=== PATIENT | female | born 1955 | race Caucasian/White ===

== ENCOUNTER 2016-12-06 08:12 | Day surgery (SDC) | payer OTHER ==
--- NOTE | 2016-11-30 13:46 | HISTORY AND PHYSICAL E ---
History and Physical NAME: GERMÁN DIAZ : 1955 AGE: 61Y ADMITTED: 12/06/2016 ROOM: REFERRING: [facility]. CHIEF COMPLAINT: Abdominal pain, bloating, nausea, constipation. PAST SURGICAL HISTORY: The patient does have history of: 1. Tonsillectomy. 2. Cholecystectomy. 3. C section. SOCIAL HISTORY: . FAMILY HISTORY: Father had heart disease. Mom had mesothelioma. REVIEW OF SYSTEMS: CARDIAC: Hypertension. High cholesterol. GASTROINTESTINAL: Abdominal pain, nausea, vomiting, constipation, IBS. ONCOLOGIC/HEMATOLOGIC: Negative. NEUROPSYCHIATRIC: Anxiety. PHYSICAL EXAMINATION: GENERAL: A 61-year-old female. VITAL SIGNS: Blood pressure 120/80, pulse 80, respirations 18, temp is 98. HEAD, EYES, EARS, NOSE, THROAT: Normal. NECK: Supple. LUNGS: Clear. ABDOMEN: Soft. NEUROLOGIC: Exam negative. CONCLUSION: 1. Abdominal pain. 2. Changed bowel habits. PLAN: 1. Upper scope. 2. Later on, consider colonoscope. 3. Admit 12/06. DICTATING PHYSICIAN: ANABEL SELBY M.D. [id number] PHY#: [id number] ID: [id number] JOB#: [id number] ACCT: [id number] cc:ANABEL SELBY M.D. >
--- NOTE | 2016-11-30 13:46 | HISTORY AND PHYSICAL E ---
History and Physical NAME: GERMÁN DIAZ : 1955 AGE: 61Y ADMITTED: 12/06/2016 ROOM: REFERRING PHYSICIAN: [facility] CHIEF COMPLAINT: Reflux. HISTORY: A 61-year-old female with reflux, bloating, nausea, constipation. History of hemorrhoids, bleeding at times. SOCIAL HISTORY: . She does not smoke, drinks rarely. SURGERIES: She did have colonoscopy at [facility], tonsillectomy, cholecystectomy, . REVIEW OF SYSTEMS: HEENT: Eyeglasses. CARDIAC: Hypertension. High cholesterol. ENDOCRINE: Negative. GI: Abdominal pain, nausea, vomiting, diarrhea, constipation. NEUROPSYCH: Anxiety. FAMILY HISTORY: Father , had heart disease. Mom had mesothelioma. PHYSICAL EXAMINATION: VITAL SIGNS: Blood pressure is 120/80, pulse 60, respirations 18, temp is 98. HEENT: Normal. ABDOMEN: Soft. NEUROLOGIC: Exam negative. CONCLUSIONS: Abdominal pain, reflux, diarrhea. PLAN: Upper scope. Patient is scheduled for 12/06/2016. DICTATING PHYSICIAN: ANABEL SELBY M.D. 1209M 1251 PHY#: [id number] ID: [id number] JOB#: [id number] ACCT: [id number] cc:ANABEL SELBY M.D. >
[~2016-12-06 08:12] MED LIST: EPINEPHRINE INJ 1 MG/10 ML DISP.SYRIN ONE; FENTANYL CITRATE INJ/PF 100 MCG/2 ML AMPUL ONE; FLUMAZENIL INJ 0.5 MG/5 ML VIAL ONE; GLYCOPYRROLATE INJ 0.4 MG/2 ML VIAL ONE; NALOXONE HCL INJ/PF 0.4 MG/1 ML SDV ONE; ONDANSETRON HCL INJ/PF 4 MG/2 ML SDV ONE
[2016-12-06] MEDS: MIDAZOLAM 2 MG/2 ML INJ ONE ×4 (09:13→09:21)
[2016-12-06 10:42] VITALS: BP 115/74
--- NOTE | 2016-12-07 12:05 | DISCHARGE SUMMARY E ---
Discharge Summary NAME: GERMÁN DIAZ : 1955 AGE: 61Y ADMITTED: 12/06/2016 DISCHARGED: 12/06/2016 12/06/2016 HOSPITAL COURSE: A 61-year-old female with abdominal pain, bloating and reflux underwent upper scope showing no evidence of ulcers, mild gastritis, esophagitis, duodenitis. DISCHARGE PLAN: 1. Awaiting biopsy, lab studies. 2. Hold aspirin. 3. Continue PPI. 4. Follow-up office visit in the next few days. DICTATING PHYSICIAN: ANABEL SELBY M.D. 1209M [id number] PHY#: [id number] ID: [id number] JOB#: [id number] ACCT: [id number] [facility] ANABEL SELBY M.D. >
[2016-12-10 10:34] LABS: DEAMIDATED GLIADIN IGA AB 4 units (0-19); DEAMIDATED GLIADIN IGG AB 2 units (0-19); IMMUNOGLOBULIN A 2 218 mg/dL (87-352); T-TRANSGLUTAMINASE (TTG) IGG <2 U/mL (0-5)
--- NOTE | 2016-12-12 13:12 | OPERATIVE REPORT E ---
Operative Report NAME: GERMÁN DIAZ : 1955 AGE: 61Y DATE OF SURGERY: 12/06/2016 ROOM: PREOPERATIVE DIAGNOSIS: Reflux. POSTOPERATIVE DIAGNOSES: 1. Esophagitis, mild. 2. Gastritis, mild. 3. Duodenitis, mild. PROCEDURE: Esophagoscopy, gastroscopy, duodenoscopy. SURGEON: ANABEL SELBY M.D. ANESTHESIA: Versed 3 mg and Fentanyl 100 mcg. TISSUE REMOVED OR ALTERED: Gastric biopsy. DESCRIPTION OF PROCEDURE: The baby scope passed under guided vision, no difficulties. Esophagoscopy: Junction at 39 cm, no hernia, no stricture, mild esophagitis. Gastroscopy: No ulcers, mild gastritis. Biopsy obtained for H. pylori. Duodenoscopy: Mild duodenitis. CONCLUSIONS: Esophagitis, gastritis, duodenitis. No evidence of ulcers. The patient tolerated the procedure well and was discharged to her room in stable condition. Procedure was EGD with biopsy, tolerated fine, discharged to her room in stable condition. DICTATING PHYSICIAN: ANABEL SELBY M.D. 1209M 1141 PHY#: [id number] ID: [id number] JOB#: [id number] ACCT: [id number] cc:[facility] ANABEL CARVER M.D. >
--- NOTE | 2016-12-13 12:41 | OPERATIVE REPORT E ---
Operative Report NAME: GERMÁN DIAZ : 1955 AGE: 61Y DATE OF SURGERY: 12/06/2016 ROOM: IDENTIFICATION: A 61-year-old female with reflux. PREOPERATIVE DIAGNOSIS: Reflux. POSTOPERATIVE DIAGNOSIS: Esophagitis, gastritis, duodenitis. OPERATION: Upper scope. SURGEON: ANABEL SELBY M.D. ANESTHESIA: Versed 4 mg and Fentanyl 100 mcg. TISSUE REMOVED OR ALTERED: Gastric biopsy. PROCEDURE: After adequate sedation, the baby scope passed under guided vision. Esophagoscopy: Junction at 39, no stricture. Gastroscopy: No ulcers. Gastritis, mild. Duodenoscopy: No ulcers. Duodenitis, mild. DISCHARGE PLAN: 1. Soft diet. 2. Awaiting biopsy. 3. Follow-up office visit in the next few days. DICTATING PHYSICIAN: ANABEL SELBY M.D. [id number] [id number] PHY#: [id number] ID: [id number] JOB#: [id number] ACCT: [id number] cc:[facility] ANABEL SELBY M.D. >
== END 2016-12-06 10:50 | disposition home or self-care (01) ==
LOC: END 08:12
PROVIDERS: ATTEND Specialist
PROC: 0DB68ZX Excision of Stomach, Via Natural or Artificial Opening Endoscopic, Diagnostic (ICD-10-PCS; principal; 2016-12-06 09:00)
DX: K29.50 Unspecified chronic gastritis without bleeding (principal); K21.0 Gastro-esophageal reflux disease with esophagitis; K29.80 Duodenitis without bleeding; I10 Essential (primary) hypertension; E78.00 Pure hypercholesterolemia, unspecified
CPT/HCPCS: 43239; 86677 ×3; 36415; 86140; 83520 ×5; 88341 ×2; 88305 ×2; J2250; J3010; J2405; J0171; J2310; J3490

== ENCOUNTER 2017-02-21 09:19 | Day surgery (SDC) | payer OTHER ==
--- NOTE | 2017-02-20 14:04 | HISTORY AND PHYSICAL E ---
History and Physical NAME: GERMÁN DIAZ : 1955 AGE: 61Y ADMITTED: 02/21/2017 ROOM: CHIEF COMPLAINT: Patient presented regarding colon screening. HISTORY AND PHYSICAL: Patient had recent upper scope showing gastritis, esophagitis, duodenitis. Now, she presented to us for colon screening. Referred to us from [facility]. Patient for colon screening, abdominal pain. SURGERIES: 1. Tonsillectomy. 2. Cholecystectomy. 3. . SOCIAL HISTORY: She does not smoke. She drinks rarely. She does have history of hemorrhoids. Diarrhea, constipation, abdominal pain, and reflux. REVIEW OF SYSTEMS: CARDIAC: Hypertension. GASTROINTESTINAL: Colon screening, diarrhea, constipation, IBS. NEUROPSYCHIATRIC: Anxiety. MUSCULOSKELETAL: Arthritis. ONCOLOGIC/HEMATOLOGIC: Negative. FAMILY HISTORY: Father had cardiac disease. Mom had mesothelioma. PHYSICAL EXAMINATION: GENERAL: Pleasant. VITAL SIGNS: Blood pressure is 120/80, pulse 80, respirations 18, temp is 98. HEENT: Normal. NECK: Supple. LUNGS: Clear. ABDOMEN: Soft. NEUROLOGIC: Negative. MEDICATIONS: Lisinopril. CONCLUSION: Colon screening, abdominal pain. PLAN: Colonoscopy. DICTATING PHYSICIAN: ANABEL SELBY M.D. [id number] [id number] [facility]#: [id number] ID: [id number] JOB#: [id number] ACCT: [id number] cc:[facility] ANABEL SELBY M.D. >
--- NOTE | 2017-02-20 14:05 | HISTORY AND PHYSICAL E ---
History and Physical NAME: GERMÁN DIAZ : 1955 AGE: 61Y ADMITTED: 02/21/2017 ROOM: The patient presented regarding colon exam. CHIEF COMPLAINT: Abdominal pain. HISTORY: Patient known to me. On November 23 presented with reflux, nausea, constipation, hemorrhoids. SOCIAL HISTORY: . Does not smoke. Drinks rarely. PAST MEDICAL HISTORY: Patient did have colonoscopy at [facility]. She did have , cholecystectomy. REVIEW OF SYSTEMS: CARDIAC: Hypertension. ENDOCRINE: Negative. GASTROINTESTINAL: Abdominal pain, nausea, vomiting, diarrhea, constipation. NEUROLOGIC/PSYCHIATRIC: Anxiety. FAMILY HISTORY: Father . He had heart disease. Mom had mesothelioma. PHYSICAL EXAMINATION: VITAL SIGNS: Blood pressure 120/80, pulse 60, respirations 18, temp is 98. HEAD, EYES, EARS, NOSE, THROAT: Normal. NECK: Supple. LUNGS: Clear. ABDOMEN: Soft. NEUROLOGIC: Negative. Patient presented with abdominal pain. Upper scope shows no ulcers. Mild esophagitis, gastritis, duodenitis. Negative dysplasia. No H. pylori. The patient was seen and evaluated. PLAN: Patient needs colon screening pending approval. Schedule for colonoscopy. Admit 02/21/2017. DICTATING PHYSICIAN: ANABEL SELBY M.D. [id number] [id number] [facility]#: [id number] ID: [id number] JOB#: [id number] ACCT: [id number] cc:ANABEL SELBY M.D. >
[~2017-02-21 09:19] MED LIST changes: -FENTANYL CITRATE INJ/PF 100 MCG/2 ML AMPUL ONE; +GLUCAGON,HUMAN RECOMB 1 MG INJ ONE; +LIDOCAINE 2% JELLY 30 ML TUBE ONE
[2017-02-21] MEDS: MIDAZOLAM 2 MG/2 ML INJ ONE ×3 (10:30→10:42)
[2017-02-21] MEDS: FENTANYL CITRATE INJ/PF 100 MCG/2 ML AMPUL ONE ×3 (10:32→10:45)
[2017-02-21 12:01] LABS: ABSOLUTE BASOPHILS # (AUTO) 0.1 10^3/uL (0.0-0.2); ABSOLUTE EOSINOPHILS # (AUTO) 0.1 10^3/uL (0.0-0.6); ABSOLUTE LYMPHOCYTES (AUTO) 1.9 10^3/uL (0.5-4.7); ABSOLUTE MONOCYTES (AUTO) 0.8 10^3/uL (0.1-1.4); ABSOLUTE NEUT (AUTO) 8.3 10^3/uL (1.7-8.2); BASOPHILS % (AUTO) 0.5 % (0-2); EOSINOPHILS % (AUTO) 1.1 % (0-6); LYMPHOCYTES % (AUTO) 17.3 % (13-45); MEAN CORPUSCULAR HEMOGLOBIN 28.9 pg (27.0-33.4); MEAN CORPUSCULAR HGB CONC 33.3 g/dL (32.0-36.0); MEAN CORPUSCULAR VOLUME 87 fl (80-97); MONOCYTES % (AUTO) 7.1 % (3-13); RED BLOOD COUNT 4.15 10^6/uL (3.72-5.28); RED CELL DISTRIBUTION WIDTH 13.1 % (11.5-14.0); WHITE BLOOD COUNT 11.2 10^3/uL (4.0-10.5)
[2017-02-21 12:22] VITALS: BP 110/77
--- NOTE | 2017-02-21 12:24 | DISCHARGE SUMMARY E ---
Discharge Summary NAME: GERMÁN DIAZ : 1955 AGE: 61Y ADMITTED: 02/21/2017 DISCHARGED: 02/21/2017 HOSPITAL COURSE: The patient is a 61-year-old female who presented with abdominal pain. Colonoscopy shows no polyps, mild external hemorrhoids, difficult colonoscopy, successful to the cecum. She did have a and cholecystectomy. DISCHARGE PLAN: Full-liquid diet. Baseline CBC. Followup office visit in the next few days. Consider followup colonoscopy 10 years. Difficult colonoscopy secondary to scar and cholecystectomy. Patient allergic to AUGMENTIN and METRONIDAZOLE. DICTATING PHYSICIAN: ANABEL SELBY M.D. 1654M 1106 PHY#: [id number] ID: [id number] JOB#: [id number] ACCT: [id number] cc:[facility] ANABEL SELBY M.D. >
--- NOTE | 2017-02-21 12:57 | OPERATIVE REPORT E ---
Operative Report NAME: GERMÁN DIAZ : 1955 AGE: 61Y DATE OF SURGERY: 02/21/2017 ROOM: PREOPERATIVE DIAGNOSIS: Colon screening. POSTOPERATIVE DIAGNOSES: 1. Redundant colon. 2. Sigmoid diverticulosis. OPERATION: Colonoscopy. SURGEON: ANABEL SELBY M.D. ANESTHESIA: Versed 4 and fentanyl 100. TISSUE REMOVED OR ALTERED: None. PROCEDURE: Rectal exam: External hemorrhoids. Sigmoid descending colon: Diverticulosis, sigmoid mild. Transverse colon normal. Ascending colon normal. Cecum normal. Scope withdrawn from cecum, ascending, transverse, descending, sigmoid, all the way to the rectum. CONCLUSION: Diverticulosis sigmoid colon. Difficult colonoscopy. No polyps. No malignancy. Mild external hemorrhoids. DISCHARGE PLAN: Baseline CBC. Full liquid diet. Patient to see us in the office in the next few days. Consider followup colonoscopy 10 years. DICTATING PHYSICIAN: ANABEL SELBY M.D. [id number] [id number] Y#: [id number] ID: [id number] JOB#: [id number] ACCT: [id number] cc:[facility] ANABEL SELBY M.D. >
== END 2017-02-21 12:10 | disposition home or self-care (01) ==
LOC: END 09:19
PROVIDERS: ATTEND Specialist
PROC: 0DJD8ZZ Inspection of Lower Intestinal Tract, Via Natural or Artificial Opening Endoscopic (ICD-10-PCS; principal; 2017-02-21 10:00)
DX: Z12.11 Encounter for screening for malignant neoplasm of colon (principal); K57.30 Diverticulosis of large intestine without perforation or abscess without bleeding; K64.4 Residual hemorrhoidal skin tags; M19.90 Unspecified osteoarthritis, unspecified site; F17.210 Nicotine dependence, cigarettes, uncomplicated; I10 Essential (primary) hypertension; K21.9 Gastro-esophageal reflux disease without esophagitis; Z79.899 Other long term (current) drug therapy
CPT/HCPCS: 45378; 36415; 85025; J2250; J3010; J1610; J2405; J0171; J2310; J3490